=== PATIENT | female | born 1940 | race African-American/Black ===

== ENCOUNTER 2016-09-10 16:12 | Inpatient (IN) | payer MEDICARE, BC ==
[~2016-09-10] VITALS: Ht 170.2 cm; Wt 74.4 kg
[~2016-09-10 16:12] MED LIST: ALEVE
[2016-09-10 16:30] VITALS: BP_SYST 128; BP_DIAS 86; BP_DIAS 87
[2016-09-10] MEDS ORDERED: ACETAMINOPHEN 650MG/20.3ML UDC PO PRN (17:15)
[2016-09-10] MEDS ORDERED: HYDROCODONE/ACETAMINOPHEN 5/325MG TABLET PO PRN (17:15)
[2016-09-10] MEDS ORDERED: CLONIDINE 0.1MG TABLET PO PRN (17:15)
[2016-09-10] MEDS ORDERED: SODIUM CHLORIDE 0.45% 1,000 ML IV SCH (18:30)
[2016-09-10] MEDS ORDERED: OMEP20CA10 PO (18:32)
[2016-09-10] MEDS ORDERED: IBUP-1509 PO (18:32)
[2016-09-10] MEDS ORDERED: HYDR-2510 PO (18:32)
[2016-09-10] MEDS ORDERED: LEVO50TA8 PO (18:32)
[2016-09-10] MEDS ORDERED: AMLO10TA80 PO (18:32)
[2016-09-10] MEDS ORDERED: LISI-604 PO (18:32)
[2016-09-10] MEDS: IBUPROFEN 600MG TABLET PO PRN ×2 (18:51→23:52)
[2016-09-10] MEDS: ONDANSETRON HCL 4MG/2ML VIAL IV PRN (18:52)
[2016-09-10 19:56] LABS: BASOPHILS % 0.4 % (0.0-2.0); EOSINOPHILS % 1.2 % (0.0-5.0); HEMATOCRIT. 42.9 % (36.0-48.0); HEMOGLOBIN. 13.9 g/dL (12.0-16.0); LYMPHOCYTES % 10.5 % (20.0-50.0); MEAN CORPUSCULAR HEMOGLOBIN 28.3 pg (28.0-32.0); MEAN CORPUSCULAR HGB CONC 32.5 g/dL (31.0-37.0); MEAN CORPUSCULAR VOLUME 87.1 fL (81.0-99.0); MEAN PLATELET VOLUME 9.1 fl (7.4-10.4); MONOCYTES % 7.9 % (2.0-8.0); PLATELET 218 x1000/uL (130-400); RED BLOOD CELL COUNT 4.92 mill/uL (4.2-5.4); RED CELL DISTRIBUTION WIDTH 15.4 % (11.6-14.6); WHITE BLOOD COUNT 9.7 x1000/uL (4.5-11.0)
[2016-09-10 20:00] VITALS: BP 120/81
[2016-09-10 20:16] LABS: CALCIUM 8.9 mg/dL (8.5-10.1)
[2016-09-10] MEDS ORDERED: LEVOFLOXACIN 500MG PREMIX 100 ML IV NR (21:00)
[2016-09-10] MEDS: METRONIDAZOLE 500 MG PREMIX 100 ML IV SCH (21:23)
[2016-09-11] VITALS: BP 110/66
[2016-09-11] MEDS: METRONIDAZOLE 500 MG PREMIX 100 ML IV SCH ×3 (05:12→20:45)
[2016-09-11 05:20] VITALS: BP 109/69
[2016-09-11] MEDS: IBUPROFEN 600MG TABLET PO PRN ×3 (05:42→20:44)
[2016-09-11 08:00] VITALS: BP 114/80
[2016-09-11] MEDS: HYDROCHLOROTHIAZIDE 50MG TABLET PO SCH (08:52)
[2016-09-11] MEDS: AMLODIPINE 10MG TABLET PO SCH (08:52)
[2016-09-11] MEDS: LEVOTHYROXINE SODIUM 50MCG TABLET PO SCH (08:53)
[2016-09-11] MEDS: OMEPRAZOLE 20MG CAPSULE EXTENDED RELEASE PO SCH (08:53)
[2016-09-11] MEDS ORDERED: PANTOPRAZOLE SODIUM 40 MG/VIAL IV SCH (09:00)
[2016-09-11] MEDS ORDERED: ENOXAPARIN 40MG/0.4ML SYR SUBCUT SCH (09:00)
[2016-09-11 10:04] LABS: BASOPHILS % 0.4 % (0.0-2.0); EOSINOPHILS % 0.8 % (0.0-5.0); HEMATOCRIT. 42.7 % (36.0-48.0); HEMOGLOBIN. 13.8 g/dL (12.0-16.0); LYMPHOCYTES % 10.5 % (20.0-50.0); MEAN CORPUSCULAR HGB CONC 32.3 g/dL (31.0-37.0); MEAN CORPUSCULAR VOLUME 86.6 fL (81.0-99.0); MEAN PLATELET VOLUME 8.9 fl (7.4-10.4); MONOCYTES % 9.3 % (2.0-8.0); PLATELET 225 x1000/uL (130-400); RED BLOOD CELL COUNT 4.93 mill/uL (4.2-5.4); RED CELL DISTRIBUTION WIDTH 15.8 % (11.6-14.6); WHITE BLOOD COUNT 9.9 x1000/uL (4.5-11.0)
[2016-09-11] MEDS ORDERED: LACTULOSE 20G/30ML UDC PO NR ×2 (11:45→15:45)
[2016-09-11 11:57] LABS: ALANINE AMINOTRANSFERASE 15 IU/L (13-61); ANION GAP 17; CALCIUM 8.8 mg/dL (8.5-10.1); CARBON DIOXIDE 21 mEq/L (21-32); CHLORIDE 94 mEq/L (98-107); LIPASE 602 IU/L (73-393); UREA NITROGEN BLOOD 34 mg/dL (7-21); eGFR 38 mL/min (>60)
[2016-09-11 12:00] VITALS: BP 92/61
[2016-09-11] MEDS: DEXT 5%/0.45% NACL 1000ML 1,000 ML IV SCH ×2 (12:52→20:45)
[2016-09-11 16:00] VITALS: BP 126/80
[2016-09-11 17:02] LABS: CLARITY URINE CLEAR (CLEAR); COLOR URINE YELLOW (YELLOW); GLUCOSE URINE NEGATIVE (NEGATIVE); KETONES URINE 1+ (NEGATIVE); LEUKOCYTE ESTERASE URINE 2+ (NEGATIVE); NITRITE URINE POSITIVE (NEGATIVE); OCCULT BLOOD URINE TRACE (NEGATIVE); PROTEIN URINE NEGATIVE (NEGATIVE); SPECIFIC GRAVITY URINE 1.015 (1.005-1.030); UROBILINOGEN URINE 0.2 E.U./dL (0.2-1.0)
[2016-09-11 17:36] LABS: BACTERIA URINE 2+; RBC URINE 0-2 /hpf (0-2); SQUAMOUS EPITHELIAL CELL URINE FEW /lpf (RARE/1+)
[2016-09-11] MEDS: ONDANSETRON HCL 4MG/2ML VIAL IV PRN (17:38)
[2016-09-11 20:00] VITALS: BP 123/82
[2016-09-11] MEDS: LEVOFLOXACIN 250MG PREMIX 50 ML IV SCH (20:45)
[2016-09-12] VITALS: BP 113/75
[2016-09-12] MEDS: METRONIDAZOLE 500 MG PREMIX 100 ML IV SCH ×3 (03:16→20:47)
[2016-09-12 04:00] VITALS: BP 103/81
[2016-09-12] MEDS: DEXT 5%/0.45% NACL 1000ML 1,000 ML IV SCH (05:25)
[2016-09-12] MEDS ORDERED: BUPIVACAINE HCL 0.5% (5MG/ML) 50ML ONE (06:18)
[2016-09-12] MEDS ORDERED: SKIN ADHESIVE 0.7 GM EA TOP ONE (06:18)
[2016-09-12] MEDS ORDERED: MORPHINE SULFATE 4 MG/ML CPJ (NOT FOR IM USE) IV PRN (07:00)
[2016-09-12] MEDS ORDERED: MORPHINE SULFATE 2 MG/ML CPJ (NOT FOR IM USE) IV PRN (07:00)
[2016-09-12] MEDS ORDERED: HYDROCODONE/ACETAMINOPHEN 5/325MG TABLET PO PRN ×2 (07:00)
[2016-09-12] MEDS ORDERED: ONDANSETRON HCL 4MG/2ML VIAL IV PRN ×2 (07:00→07:30)
[2016-09-12 07:05] LABS: HEMATOCRIT. 46.7 % (36.0-48.0); HEMOGLOBIN. 15.1 g/dL (12.0-16.0); MEAN CORPUSCULAR HEMOGLOBIN 27.7 pg (28.0-32.0); MEAN CORPUSCULAR HGB CONC 32.4 g/dL (31.0-37.0); MEAN CORPUSCULAR VOLUME 85.6 fL (81.0-99.0); MEAN PLATELET VOLUME 9.6 fl (7.4-10.4); PLATELET 281 x1000/uL (130-400); RED BLOOD CELL COUNT 5.45 mill/uL (4.2-5.4); RED CELL DISTRIBUTION WIDTH 15.7 % (11.6-14.6); WHITE BLOOD COUNT 15.7 x1000/uL (4.5-11.0)
[2016-09-12] MEDS ORDERED: LIDOCAINE HCL 1% 20ML VIAL (Pyxis) INJ ONE (07:24)
[2016-09-12] MEDS ORDERED: ROCURONIUM BROMIDE 10MG/ML VIAL 5ML IV ONE (07:24)
[2016-09-12] MEDS ORDERED: PROPOFOL 200MG/20ML VIAL IV ONE (07:24)
[2016-09-12] MEDS ORDERED: ATROPINE SULFATE 0.4MG/ML VIAL IV PRN (07:30)
[2016-09-12] MEDS ORDERED: FENTANYL CITRATE/PF 50MCG/ML 2ML VIAL IV PRN (07:30)
[2016-09-12] MEDS ORDERED: NEOSTIGMINE METHYLSULFATE 1MG/ML 10 ML VIAL ONE (07:36)
[2016-09-12] MEDS ORDERED: GLYCOPYRROLATE 0.2 MG/ML 2ML VIAL ONE (07:36)
[2016-09-12 08:00] VITALS: BP 100/74
[2016-09-12 08:05] LABS: DIFFERENTIAL COMMENT 1
[2016-09-12 08:08] LABS: CALCIUM 9.1 mg/dL (8.5-10.1)
[2016-09-12] MEDS ORDERED: DEXT 5%/0.45% NACL KCL 20MEQ/L 1,000 ML IV SCH (08:30)
[2016-09-12] MEDS: AMLODIPINE 10MG TABLET PO SCH (09:00)
[2016-09-12] MEDS: HYDROCHLOROTHIAZIDE 50MG TABLET PO SCH (09:00)
[2016-09-12] MEDS: LEVOTHYROXINE SODIUM 50MCG TABLET PO SCH (10:33)
[2016-09-12] MEDS: OMEPRAZOLE 20MG CAPSULE EXTENDED RELEASE PO SCH (10:33)
[2016-09-12 12:00] VITALS: BP 90/61
[2016-09-12] MEDS: SODIUM CHLORIDE 0.9% INJ 3ML FLUSH IVF SCH ×2 (14:19→21:49)
[2016-09-12] MEDS: SODIUM CHL 0.9% + KCL 20MEQ/L 1,000 ML IV SCH (14:34)
[2016-09-12 16:00] VITALS: BP 95/73
[2016-09-12 19:51] LABS: PLATELET ESTIMATE NORMAL
[2016-09-12 20:00] VITALS: BP 103/74
[2016-09-12] MEDS: LEVOFLOXACIN 250MG PREMIX 50 ML IV SCH (20:47)
[2016-09-12 21:37] LABS: POTASSIUM URINE RANDOM 35.6 mEq/L
[2016-09-13] VITALS: BP 98/74
[2016-09-13] MEDS: METRONIDAZOLE 500 MG PREMIX 100 ML IV SCH (03:34)
[2016-09-13 04:00] VITALS: BP 96/69
[2016-09-13] MEDS: SODIUM CHLORIDE 0.9% INJ 3ML FLUSH IVF SCH (06:19)
[2016-09-13 06:55] LABS: HEMATOCRIT. 43.4 % (36.0-48.0); HEMOGLOBIN. 14.1 g/dL (12.0-16.0); MEAN CORPUSCULAR HEMOGLOBIN 27.8 pg (28.0-32.0); MEAN CORPUSCULAR HGB CONC 32.4 g/dL (31.0-37.0); MEAN CORPUSCULAR VOLUME 85.9 fL (81.0-99.0); MEAN PLATELET VOLUME 9.4 fl (7.4-10.4); PLATELET 246 x1000/uL (130-400); RED BLOOD CELL COUNT 5.05 mill/uL (4.2-5.4); RED CELL DISTRIBUTION WIDTH 15.4 % (11.6-14.6); WHITE BLOOD COUNT 11.7 x1000/uL (4.5-11.0)
[2016-09-13 07:43] LABS: CALCIUM 8.6 mg/dL (8.5-10.1)
[2016-09-13 07:59] LABS: DIFFERENTIAL COMMENT 1
[2016-09-13 08:00] VITALS: BP 119/79
[2016-09-13] MEDS: HYDROCHLOROTHIAZIDE 50MG TABLET PO SCH (09:01)
[2016-09-13] MEDS: AMLODIPINE 10MG TABLET PO SCH (09:02)
[2016-09-13] MEDS: LEVOTHYROXINE SODIUM 50MCG TABLET PO SCH (09:02)
[2016-09-13] MEDS: OMEPRAZOLE 20MG CAPSULE EXTENDED RELEASE PO SCH (09:02)
[2016-09-13] MEDS: SODIUM CHL 0.9% + KCL 20MEQ/L 1,000 ML IV SCH ×2 (09:02)
[2016-09-13 11:28] VITALS: BP 114/85
[2016-09-13 11:56] LABS: CALCIUM 8.7 mg/dL (8.5-10.1)
[2016-09-13 12:23] LABS: PLATELET ESTIMATE NORMAL
== END 2016-09-13 11:50 | disposition home or self-care (01) | DRG 853 ==
LOC: 6EST 16:12
PROVIDERS: ADMIT Internal Medicine; ATTEND Internal Medicine
PROC: 0FT44ZZ Resection of Gallbladder, Percutaneous Endoscopic Approach (ICD-10-PCS; principal; 2016-09-12 07:00)
DX: A41.9 Sepsis, unspecified organism (principal); N17.0 Acute kidney failure with tubular necrosis; K85.10 Biliary acute pancreatitis without necrosis or infection; K80.00 Calculus of gallbladder with acute cholecystitis without obstruction; E87.2 Acidosis; N39.0 Urinary tract infection, site not specified; E46 Unspecified protein-calorie malnutrition; E87.1 Hypo-osmolality and hyponatremia; E86.0 Dehydration; E03.9 Hypothyroidism, unspecified; I12.9 Hypertensive chronic kidney disease with stage 1 through stage 4 chronic kidney disease, or unspecified chronic kidney disease; I25.10 Atherosclerotic heart disease of native coronary artery without angina pectoris; K76.0 Fatty (change of) liver, not elsewhere classified; N18.9 Chronic kidney disease, unspecified
CPT/HCPCS: 36415; 71010; 73706; 76700; 80048; 81001; 83690; 83930; 83935; 84133; 84300; 84450; 84460; 85025; 85730; 88304; 93005; C1893; J1956; J2405; J2704; J2710; J3480; J3490

== ENCOUNTER 2018-04-01 06:24 | Day surgery (SDC) | payer MEDICARE, BC ==
[~2018-04-01] VITALS: Ht 170.2 cm; Wt 77.1 kg
[~2018-04-01 06:24] MED LIST changes: +AMLO10TA80 PO; +HYDR-2510 PO; +IBUP-2028 PO; +LEVO50TA8 PO; +LISI-604 PO; +OMEP20CA10 PO
[2018-04-01] MEDS ORDERED: LACTATED RINGERS 1,000 ML IV SCH (07:00)
[2018-04-01 08:20] LABS: CLARITY URINE CLOUDY (CLEAR); COLOR URINE YELLOW (YELLOW); KETONES URINE NEGATIVE (NEGATIVE); LEUKOCYTE ESTERASE URINE 3+ (NEGATIVE); NITRITE URINE NEGATIVE (NEGATIVE); OCCULT BLOOD URINE NEGATIVE (NEGATIVE); PROTEIN URINE NEGATIVE (NEGATIVE); SPECIFIC GRAVITY URINE 1.011 (1.005-1.030); UROBILINOGEN URINE 0.2 E.U./dL (0.2-1.0)
[2018-04-01] MEDS ORDERED: SKIN ADHESIVE 0.7 GM EA TOP ONE (08:31)
[2018-04-01] MEDS ORDERED: BUPIVACAINE HCL 0.5% (5MG/ML) 50ML ONE (08:31)
[2018-04-01] MEDS ORDERED: FENTANYL CITRATE/PF 50MCG/ML 5ML VIAL ONE (09:20)
[2018-04-01] MEDS ORDERED: CLINDAMYCIN 900 MG in DEXTROSE 5% WATER 50 ML IV ONE (09:30)
[2018-04-01] MEDS ORDERED: GLYCOPYRROLATE 0.2 MG/ML 2ML VIAL ONE ×2 (09:32→12:46)
[2018-04-01] MEDS ORDERED: ONDANSETRON HCL 4MG/2ML INJ IV PRN (10:00)
[2018-04-01] MEDS ORDERED: FENTANYL CITRATE/PF 50MCG/ML 2ML VIAL IV PRN (10:00)
[2018-04-01] MEDS ORDERED: BUPIVACAINE HCL/PF 0.5% (5MG/ML) 10ML ONE (12:42)
== END 2018-04-01 14:10 | disposition home or self-care (01) ==
LOC: OR 06:24
PROVIDERS: ATTEND Surgery
DX: K43.2 Incisional hernia without obstruction or gangrene (principal); I25.10 Atherosclerotic heart disease of native coronary artery without angina pectoris; I12.9 Hypertensive chronic kidney disease with stage 1 through stage 4 chronic kidney disease, or unspecified chronic kidney disease; N18.9 Chronic kidney disease, unspecified; E03.9 Hypothyroidism, unspecified; Z79.899 Other long term (current) drug therapy; Z79.1 Long term (current) use of non-steroidal anti-inflammatories (NSAID); Z98.890 Other specified postprocedural states
CPT/HCPCS: 49654; 81003; 87077; 87086; 87186; C1781; G0168; J3010; J3490; J7120; J7060